=== PATIENT | female | born 1980 | race Hispanic/Latino ===

== ENCOUNTER → 2024-07-14 | Day surgery (SDC) | payer BC ==
[~2024-07-14] MED LIST: CARAFATE1 GM PO; FENTANYL CITRATE/PF 100MCG/2 ML INJ ONE; LIDOCAINE HCL 2% LOCAL INJ 5 ML SDV VIAL INJ ONE; LOSARTAN-HCTZ1 EAC1 PO; MIDAZOLAM HCL 2 MG/2 ML VIAL ONE; PROPOFOL IV EMULSION 10 MG/ML 20 ML VIAL ONE
[2024-07-14] MEDS: LACTATED RINGER'S 1,000 ML ONE (08:28)
[2024-07-14 09:56] VITALS: TEMP 97
[2024-07-14 10:20] VITALS: BP 130/88; PULSE 76; RESP 18; O2SAT 99
== END | disposition home or self-care (01) ==
LOC: OR 08:10
PROVIDERS: ATTEND Internal Medicine Gastroenterology
DX: K21.00 Gastro-esophageal reflux disease with esophagitis, without bleeding (principal); K29.50 Unspecified chronic gastritis without bleeding; K29.80 Duodenitis without bleeding; K44.9 Diaphragmatic hernia without obstruction or gangrene; R19.8 Other specified symptoms and signs involving the digestive system and abdomen; I10 Essential (primary) hypertension; F41.9 Anxiety disorder, unspecified; M54.2 Cervicalgia; M54.9 Dorsalgia, unspecified; Z72.0 Tobacco use; Z01.810 Encounter for preprocedural cardiovascular examination; Z79.899 Other long term (current) drug therapy
CPT/HCPCS: 43239; 81025; 93005; J2001; J2250; J2704; J3010; J7121